=== PATIENT | female | born 1970 | race Caucasian/White ===

== ENCOUNTER → 2017-01-24 | Outpatient (CLI) | payer OTHER | END | disposition home or self-care (01) | LOC: LABWHC1 14:20 | PROVIDERS: ATTEND Obstetrics & Gynecology | DX: R10.31 Right lower quadrant pain (principal); N83.201 Unspecified ovarian cyst, right side | CPT/HCPCS: 36415; 81503 ==

== ENCOUNTER → 2017-04-15 | Outpatient (CLI) | payer OTHER ==
[2017-04-15 09:19] LABS: Basophils # (A) 0.1 k/uL (0-0.2); Basophils % (A) 2 %; CH 32.8; CHCM 32.1; Eosinophils # (A) 0.3 k/uL (0-0.7); Eosinophils % (A) 5 %; HCT 46.8 % (34.0-46.0); HDW 2.12; HGB 14.9 gm/dL (11.4-16.0); Luc # (Auto) 0.11; Luc % (Auto) 2; Lymphocytes % (A) 38 %; MCH 32.6 pg (25.0-35.0); MCHC 31.7 g/dL (31.0-37.0); MCV 102.7 fL (80.0-100.0); Macrocytosis Slight; Mean Platelet Volume 7.4; Monocytes # (A) 0.5 k/uL (0-1.0); Monocytes % (A) 9 %; Neutrophils # (A) 2.3 k/uL (1.3-7.7); Neutrophils % (A) 44 %; RBC 4.56 m/uL (3.80-5.40); RDW 13.3 % (11.5-15.5); WBC 5.3 k/uL (3.8-10.6); WBC (Perox) 5.46
== END | disposition home or self-care (01) ==
LOC: LABPAT 08:47
PROVIDERS: ATTEND Obstetrics & Gynecology
DX: Z01.810 Encounter for preprocedural cardiovascular examination (principal); Z01.812 Encounter for preprocedural laboratory examination; I10 Essential (primary) hypertension
CPT/HCPCS: 36415; 85025; 93005

== ENCOUNTER 2017-04-25 07:17 | Day surgery (SDC) | payer OTHER ==
[2017-04-19 15:10] VITALS: BMI 25.7
[~2017-04-25 07:17] MED LIST: DEXAMETHASONE SOD PHOSPHATE 10 MG/ML 1 ML VIAL IV ONE; HYDROmorphone 0.5 MG/0.5 ML SYRINGE IVP PRN; MIDAZOLAM 2 MG/2 ML VIAL IV PRN; ONDANSETRON 4 MG/2 ML VIAL IVP ONE; Pre Op ABX Message 1 EACH MISC MISCELLANE ONE
[2017-04-25] MEDS: LACTATED RINGERS 1,000 ML IV SCH ×2 (07:55→10:30)
[2017-04-25] MEDS ORDERED: LIDOCAINE 1% 20 ML VIAL (10MG/ML) FOR IV START INTRADERMA ONE (07:56)
[2017-04-25] MEDS ORDERED: SCOPOLAMINE 1.5MG/72HR PATCH TRANSDERM ONE (07:57)
[2017-04-25] MEDS ORDERED: ROCURONIUM BROMIDE 10 MG/ML 10 ML VIAL IV ONE (08:30)
[2017-04-25] MEDS ORDERED: NEOSTIGMINE 1 MG/ML 10 ML VIAL ONE (08:30)
[2017-04-25] MEDS ORDERED: MIDAZOLAM 2 MG/2 ML VIAL ONE (08:30)
[2017-04-25] MEDS ORDERED: GLYCOPYRROLATE 0.2 MG/ML 2 ML VIAL ONE (08:30)
[2017-04-25] MEDS ORDERED: fentaNYL (PF) 50 MCG/ML 2 ML AMP ONE (08:30)
[2017-04-25] MEDS ORDERED: LIDOCAINE 1% INJ 10MG/ML (20 ML MDV) ONE (08:30)
[2017-04-25] MEDS ORDERED: PROPOFOL 10 MG/ML 20 ML VIAL IV ONE (08:30)
[2017-04-25] MEDS ORDERED: SUCCINYLCHOLINE CHLORIDE 100 MG/5 ML SYR IV ONE (08:30)
[2017-04-25] MEDS ORDERED: BUPIVACAINE-EPI 0.5%-1:200,000 10 ML VIAL SQ ONE ×2 (08:56→09:24)
--- NOTE | 2017-04-25 09:30 | P.OP ---
Date of Procedure: 04/25/17 Preoperative Diagnosis: Persistent right lower quadrant pain, complex right ovarian cyst. Postoperative Diagnosis: Pathology pending, normal-appearing left ovary, negative pelvis. Procedure(s) Performed: Diagnostic laparoscopy, right salpingo-oophorectomy. Anesthesia: SHEA Surgeon: Mariela Araya Jet Wiper #1: Yumiko Stearns Estimated Blood Loss (ml): 10 IV fluids (ml): 700 Urine output (ml): 75 Pathology: other (Right tube and ovary) Condition: stable Disposition: PACU Description of Procedure: Patient is brought to the operating suite where a general anesthetic is administered. She's placed in the dorsal lithotomy position. The cervix vagina perineum and abdomen are all prepped and draped in the usual sterile fashion. Urine hCG is negative. The appropriate timeout is performed to assure proper patient and procedural identification. Examination under anesthesia reveals a small mobile anteverted uterus, negative adnexa bilaterally. Bladder is drained for 75 mL of clear yellow urine. Speculum was placed into the vagina and the anterior lip of the cervix is grasped with a tenaculum. The acorn cannula is placed and attached to the tenaculum. Speculum was removed. At this time attention is drawn to the abdominal cavity. A small infraumbilical incision is placed and the varies needle is seated. Insertion is atraumatic, noted by hanging drop technique. The abdomen is insufflated under low filling pressures of 4-6 mmHg for a total of 3 L of CO2 gas. Veress needle was removed. Trochars placed and placement is noted to be atraumatic. A second incision is made suprapubically, and the second trocar is placed under direct visualization. A third incision is made in the left lower quadrant again under direct visualization for atraumatic entry. A LigaSure is used and the right uterosacral cardinal ligament is cauterized and cut. The right ovarian vasculature is identified, cauterized with a ligature and cut. A third incision is made in the right tube and ovary are mobilized. The Endopouch was introduced and the right tube and ovary are placed in the pouch, and brought out intact through the left lower quadrant incision. Urine is noted to be freely peristalsing. The left ovary is visualized and noted to be absolutely within normal limits to inspection. No evidence of pelvic endometriosis, adhesions, or other pathology is noted. 5 mL of FloSeal I then placed on the base of the right adnexal region for excellent hemostasis. CO2 gas was allowed to diffuse, again hemostasis is excellent. The trochars are removed under direct visualization and the fascial defects are clean and dry. 4-0 Monocryl suture is used on all 3 incisions for excellent reapproximation. Steri-Strips and Mastisol are applied to the wounds. The incisions are injected for total of 8 mL of Marcaine with epinephrine to aid in postoperative analgesia. Toradol is given prior to leaving the operative suite. Instrumentation is removed from the vagina, the cervix is clean and dry. Patient is brought to the recovery room in very good condition with stable vital signs including a blood pressure of 122/70, pulse 85, 100% O2 saturation.
[2017-04-25 09:49] VITALS: TEMP 97
[2017-04-25 09:55] VITALS: RESP 16
[2017-04-25] MEDS ORDERED: HYDROmorphone 2 MG/ML 1 ML SYRINGE IV ONE (10:05)
[2017-04-25 11:18] VITALS: BP 120/72; PULSE 66
== END 2017-04-25 11:50 | disposition home or self-care (01) ==
LOC: OR 07:17
PROVIDERS: ATTEND Obstetrics & Gynecology
DX: N83.291 Other ovarian cyst, right side (principal); N83.11 Corpus luteum cyst of right ovary; I10 Essential (primary) hypertension; F17.200 Nicotine dependence, unspecified, uncomplicated; Z79.899 Other long term (current) drug therapy; Z79.1 Long term (current) use of non-steroidal anti-inflammatories (NSAID); Z98.82 Breast implant status
CPT/HCPCS: 81025; 88305; 58661; C1762; J2250; J1170 ×2; J1100; J2710; J2405; J2001; J3010; J0330; J2704

== ENCOUNTER → 2017-08-11 | Outpatient (CLI) | payer OTHER ==
--- NOTE | 2017-08-12 10:03 | CT ---
EXAMINATION TYPE: CT abdomen pelvis w con DATE OF EXAM: 08/11/2017 COMPARISON: NONE HISTORY: RLQ pain CT DLP: 583.6 mGycm Automated exposure control for dose reduction was used. CONTRAST: CT scan of the abdomen pelvis is performed with IV Contrast, patient injected with 100 mL of Omnipaqu e 300. FINDINGS- LUNG BASES-linear subsegmental changes at the left lung base most typical of atelectasis. LIVER/GB-there are 2 hypodensities within the liver largest measuring 6 mm. They're too small to david acterize but likely related to simple cyst. Gallbladder is contracted with no definite gallstone. PANCREAS- No gross abnormality is seen. SPLEEN- No gross abnormality is seen. ADRENALS- No gross abnormality is seen. KIDNEYS/BLADDER- no hydronephrosis nephrolithiasis or renal mass. BOWEL- no bowel dilatation. Normal appendix. Stomach is distended. Mild thickening to the terminal ileum with no evidence of inflammatory change. LYMPH NODES- No greater than 1cm abdominal or pelvic lymph nodes areappreciated. OSSEOUS STRUCTURES-mild hypertrophic change spine.. OTHER- slight lobulation of the uterus could be normal variant. Small fibroid not exchanged consider ultrasound follow-up. No evidence of aortic aneurysm. Aorta of normal caliber with minimal atheroscl erotic changes. IMPRESSION- 1. No definite acute process. The stomach is distended which could be transient. Otherwise consider g astroenteritis or gastroparesis. Gastric outlet obstruction felt unlikely due to passage of contrast into the colon. 2. Mild thickening of the terminal ileum. No inflammatory changes. If the patient is experiencing gas trointestinal symptoms than mild enteritis would be the differential diagnosis. 3. Mild lobulation of the uterus as discussed above
== END | disposition home or self-care (01) ==
LOC: RADCTMAIN 15:20
PROVIDERS: ATTEND Family Medicine
DX: K31.89 Other diseases of stomach and duodenum (principal); K63.9 Disease of intestine, unspecified; N85.8 Other specified noninflammatory disorders of uterus
CPT/HCPCS: 74177; Q9967

== ENCOUNTER 2017-08-21 09:33 | Day surgery (SDC) | payer OTHER ==
[2017-08-18 14:20] VITALS: BMI 26.9
[~2017-08-21 09:33] MED LIST changes: -HYDROmorphone 0.5 MG/0.5 ML SYRINGE IVP PRN; +LACTATED RINGERS 1,000 ML IV SCH; -MIDAZOLAM 2 MG/2 ML VIAL IV PRN; -Pre Op ABX Message 1 EACH MISC MISCELLANE ONE
[2017-08-21] MEDS ORDERED: LIDOCAINE 1% 20 ML VIAL (10MG/ML) FOR IV START INTRADERMA ONE (10:44)
[2017-08-21 10:47] VITALS: TEMP 97.9
[2017-08-21] MEDS ORDERED: PROPOFOL 10 MG/ML 20 ML VIAL IV ONE (10:48)
[2017-08-21] MEDS ORDERED: LIDOCAINE 1% INJ 10MG/ML (20 ML MDV) ONE (10:48)
[2017-08-21] MEDS ORDERED: IV FLUID CONTINUATION 1,000 ML IV ONE (11:40)
--- NOTE | 2017-08-21 11:47 | P.PCN ---
Date of Procedure: 08/21/17 Preoperative Diagnosis: Abdominal pain rule out inflammatory bowel disease Postoperative Diagnosis: Duodenitis, transverse colon polyp, ileitis, diverticulosis Procedure(s) Performed: EGD with multiple biopsies colonoscopy with multiple biopsies and polypectomy Anesthesia: MAC Surgeon: Jules Johnson Pathology: other (Multiple biopsies and transverse colon polyp) Condition: stable Disposition: PACU Indications for Procedure: This 47-year-old female is been experiencing right lower quadrant pain and bloody bowel movements for many years. She has a family history of Crohn's and celiac disease. I discussed with her EGD and colonoscopy with biopsies risks including bleeding infection damage surrounding tissue need for further operation and perforation were discussed she stated she understood agreed and consented Operative Findings: Duodenitis ileitis transverse colon polyp Description of Procedure: Patient was brought into the Endo suite placed in the left lateral decubitus position underwent sedation per department of anesthesia timeout was performed correct patient correct procedure correct site was verified the scope was placed through the oropharynx down the esophagus under direct visualization into the first and second portion of the duodenum where there was inflammation noted multiple biopsies of this were taken. Scope was then retracted to the stomach and antral biopsies taken to rule out H. pylori the scope was then retroflexed and the entire body and marino of the stomach were inspected sufficient time was allowed for the stomach to insufflate and no hiatal hernia was noted the scope was then withdrawn to the GE junction where mild inflammation was noted to was taken. Scope was then slowly withdrawn through the esophagus and no other abnormalities were noted. Rectal exam wasn't performed abnormalities noted the colonoscope was passed from the rectum to the cecum with ease. Multiple attempts at intubating the terminal ileum were made and there was an ileitis noted and possible stricturing of the terminal ileum made it unable for the scope to pass in. Biopsy of the ileocecal valve was taken. The scope was then slowly withdrawn being sure to visualize all marino of the colon on the way out random biopsies of the ascending colon were taken a small polyp was noted in the transverse colon which was excised with the snare polypectomy. Random biopsies sigmoid colon and rectum were taken. The scope was retroflexed in the rectum no other abnormalities were noted. There was some sigmoid diverticulosis noted. Patient tolerated procedure well no apparent complications Plan - Discharge Summary New Discharge Prescriptions: No Action Triamterene-Hctz 37.5-25Mg [Maxzide 37.5-25] 0.5 tab PO DAILY traMADol HCL [Ultram] 50 mg PO Q8HR PRN PRN Reason: Pain Discharge Medication List Triamterene-Hctz 37.5-25Mg [Maxzide 37.5-25] 0.5 tab PO DAILY 02/29/16 [History] traMADol HCL [Ultram] 50 mg PO Q8HR PRN 08/18/17 [History] Follow up Appointment(s)/Referral(s): Jules Johnson DO [Doctor of Osteopathic Medicine] - As Needed Patient Instructions/Handouts: *[facility] - (Anesthesia) Endoscopy Discharge Instructions, Colonoscopy (DC), Upper Endoscopy (DC) Discharge Disposition: HOME SELF-CARE
[2017-08-21 11:58] VITALS: BP 132/78; PULSE 78; RESP 18
== END 2017-08-21 12:19 | disposition home or self-care (01) ==
LOC: ORWHC2ENDO 09:33
PROVIDERS: ATTEND Student in an Organized Health Care Education/Training Program
DX: K29.50 Unspecified chronic gastritis without bleeding (principal); D12.3 Benign neoplasm of transverse colon; K29.80 Duodenitis without bleeding; K57.30 Diverticulosis of large intestine without perforation or abscess without bleeding; K52.9 Noninfective gastroenteritis and colitis, unspecified; Z83.79 Family history of other diseases of the digestive system; I10 Essential (primary) hypertension; F17.200 Nicotine dependence, unspecified, uncomplicated; Z79.1 Long term (current) use of non-steroidal anti-inflammatories (NSAID); Z79.891 Long term (current) use of opiate analgesic; Z79.899 Other long term (current) drug therapy
CPT/HCPCS: 88305; 45380; 45385; 43239; J2001; J2704

== ENCOUNTER → 2017-10-09 | Outpatient (CLI) | payer OTHER ==
[2017-10-09 17:08] LABS: Basophils # (A) 0.1 k/uL (0-0.2); Basophils % (A) 1 %; Eosinophils # (A) 0.2 k/uL (0-0.7); Eosinophils % (A) 3 %; HCT 40.2 % (34.0-46.0); HGB 13.6 gm/dL (11.4-16.0); Lymphocytes # (A) 2.5 k/uL (1.0-4.8); Lymphocytes % (A) 34 %; MCH 32.9 pg (25.0-35.0); MCHC 33.8 g/dL (31.0-37.0); MCV 97.3 fL (80.0-100.0); Mean Platelet Volume 6.6; Monocytes # (A) 0.3 k/uL (0-1.0); Monocytes % (A) 4 %; Neutrophils # (A) 4.3 k/uL (1.3-7.7); Neutrophils % (A) 57 %; Platelet Count 339 k/uL (150-450); RBC 4.14 m/uL (3.80-5.40); RDW 13.3 % (11.5-15.5); WBC 7.5 k/uL (3.8-10.6)
[2017-10-09 17:19] LABS: ALT 29 U/L (9-52); AST 22 U/L (14-36); Albumin 4.6 g/dL (3.5-5.0); Alkaline Phosphatase 88 U/L (38-126); Anion Gap 14 mmol/L; Blood Urea Nitrogen 13 mg/dL (7-17); C Reactive Protein <5.0 mg/L (<10.0); Carbon Dioxide 24 mmol/L (22-30); Chloride 105 mmol/L (98-107); Glucose 94 mg/dL (74-99); Potassium 4.5 mmol/L (3.5-5.1); Sodium 143 mmol/L (137-145); Total Bilirubin 0.3 mg/dL (0.2-1.3); Total Protein 7.2 g/dL (6.3-8.2)
[2017-10-09 18:18] LABS: Erythrocyte Sedimentation Rate 8 mm/hr (0-20)
[2017-10-11 13:21] LABS: Gamma Globulin 0.81 g/dL (0.70-1.50)
== END ==
LOC: LABWHC1 16:23
PROVIDERS: ATTEND Internal Medicine Gastroenterology
DX: R10.31 Right lower quadrant pain (principal)
CPT/HCPCS: 36415; 80053; 82784; 83516; 84165; 85025; 85652; 86140; 86255